=== PATIENT | male | born 1985 | race Caucasian/White ===

== ENCOUNTER 2020-12-15 12:32 | Emergency (ER) | payer MEDICAID ==
[~2020-12-15] VITALS: Ht 175.3 cm; Wt 77.0 kg
[2020-12-15 13:12] LABS: BASOPHILS % 0.3 % (0.0-2.0); EOSINOPHILS % 0.4 % (0.0-5.0); HEMATOCRIT. 45.4 % (42.0-52.0); HEMOGLOBIN. 15.1 g/dL (14.0-18.0); LYMPHOCYTES % 12.6 % (20.0-50.0); MEAN CORPUSCULAR HEMOGLOBIN 29.5 pg (28.0-32.0); MONOCYTES % 6.9 % (2.0-8.0); NEUTROPHILS % 79.8 % (40.0-76.0); PLATELET 244 x1000/uL (130-400); RED BLOOD CELL COUNT 5.11 mill/uL (4.7-6.1); RED CELL DISTRIBUTION WIDTH 13.4 % (11.6-14.6)
[2020-12-15 13:18] LABS: CHLORIDE 102 mEq/L (98-107)
[2020-12-15 13:22] LABS: PROTHROMBIN TIME 10.5 sec (9.6-11.0)
[2020-12-15 13:29] LABS: CLARITY URINE CLEAR (CLEAR); COLOR URINE YELLOW (YELLOW); KETONES URINE NEGATIVE (NEGATIVE); LEUKOCYTE ESTERASE URINE NEGATIVE (NEGATIVE); NITRITE URINE NEGATIVE (NEGATIVE); OCCULT BLOOD URINE NEGATIVE (NEGATIVE); PH URINE 7.5 (4.5-8.0); PROTEIN URINE NEGATIVE (NEGATIVE); UROBILINOGEN URINE 0.2 E.U./dL (0.2-1.0)
[2020-12-15 13:38] LABS: *AMPHETAMINES SCREEN URINE NEGATIVE (NEGATIVE); *BARBITURATES SCREEN URINE NEGATIVE (NEGATIVE); *BENZODIAZEPINES SCREEN URINE NEGATIVE (NEGATIVE); CANNABINOID URINE SCREEN PRESUMTIVE POSITIVE (NEGATIVE); METHADONE URINE SCREEN NEGATIVE (NEGATIVE); OPIATES URINE SCREEN NEGATIVE (NEGATIVE); PHENCYCLIDINE URINE SCREEN NEGATIVE (NEGATIVE)
[2020-12-15 13:39] LABS: *COCAINE SCREEN URINE NEGATIVE (NEGATIVE)
[2020-12-15 14:45] VITALS: BP 158/92
[2020-12-15] MEDS ORDERED: MAGNESIUM/ALUMINUM HYDROXIDE/SIMETHICONE 30ML UDC PO ONE (15:00)
[2020-12-15] MEDS ORDERED: OMEP20CA14 MT (15:08)
== END 2020-12-15 15:19 | disposition home or self-care (01) ==
LOC: ER 12:32
DX: R10.11 Right upper quadrant pain (principal)
CPT/HCPCS: 36415; 76700; 80053; 80305; 81003; 85025; 99284

== ENCOUNTER 2022-06-11 05:32 | Emergency (ER) | payer MEDICAID ==
[~2022-06-11] VITALS: Ht 172.7 cm; Wt 85.5 kg
[~2022-06-11 05:32] MED LIST: OMEP20CA14 MT
[2022-06-11] MEDS ORDERED: SULF1TAB48 PO (07:08)
[2022-06-11] MEDS ORDERED: CEPH500C2 PO (07:08)
[2022-06-11] MEDS ORDERED: T3 PO (07:08)
[2022-06-11] MEDS ORDERED: ACETAMINOPHEN 325MG TABLET PO ONE (07:15)
[2022-06-11 07:36] VITALS: BP 114/65
== END 2022-06-11 07:30 | disposition home or self-care (01) ==
LOC: ER 05:32
DX: L02.11 Cutaneous abscess of neck (principal); L03.221 Cellulitis of neck; F32.A Depression, unspecified; F41.9 Anxiety disorder, unspecified
CPT/HCPCS: 10060; 76536; 99284

== ENCOUNTER 2022-12-20 12:17 | Emergency (ER) | payer MEDICAID ==
[~2022-12-20] VITALS: Ht 175.3 cm; Wt 81.6 kg
[~2022-12-20 12:17] MED LIST changes: +CEPH500C2 PO; +SULF1TAB48 PO; +T3 PO
[2022-12-20 12:20] VITALS: BP 162/106
[2022-12-20] MEDS ORDERED: MUPI1OIN4 TP (14:30)
== END 2022-12-20 14:45 | disposition home or self-care (01) ==
LOC: ER 13:20
DX: L02.416 Cutaneous abscess of left lower limb (principal)
CPT/HCPCS: 99281; 99283

== ENCOUNTER 2022-12-28 12:09 | Emergency (ER) | payer MEDICAID ==
[~2022-12-28] VITALS: Ht 175.3 cm; Wt 82.0 kg
[~2022-12-28 12:09] MED LIST changes: +MUPI1OIN4 TP
[2022-12-28] MEDS ORDERED: TOPUD MT (14:10)
[2022-12-28] MEDS ORDERED: DICL500C MT (14:10)
[2022-12-28] MEDS ORDERED: IBUP-1525 MT (14:10)
[2022-12-28 14:29] VITALS: BP 112/65
== END 2022-12-28 14:30 | disposition home or self-care (01) ==
LOC: ER 12:09
DX: L03.116 Cellulitis of left lower limb (principal); F41.9 Anxiety disorder, unspecified; F32.9 Major depressive disorder, single episode, unspecified; Z79.899 Other long term (current) drug therapy
CPT/HCPCS: 99281